=== PATIENT | male | born 1965 | race Two or more races ===

== ENCOUNTER → 2024-10-10 | Outpatient (CLI) | payer MEDICAID, SELFPAY ==
--- NOTE | 2024-10-10 15:12 | XR_ITS ---
Examination: Abdomen AP single view Technique: AP portable supine abdomen, single view Exam date and time: October 10, 2024 1417 hours INDICATIONS: Abdominal pain constipation diarrhea 3 months FINDINGS: Mild to moderate air and stool in the colon There are air distended small bowel loops in the left abdomen No free air IMPRESSION: Consider CT scan abdomen pelvis follow-up to exclude early small bowel obstruction
== END | disposition home or self-care (01) ==
LOC: CDIM 14:54
PROVIDERS: PCP Family Medicine; Referring Provider Family Medicine; Visit Provider Family Medicine
DX: R10.9 Unspecified abdominal pain (principal)
CPT/HCPCS: 74018

== ENCOUNTER → 2025-01-04 | Outpatient (CLI) | payer MEDICAID, SELFPAY ==
--- NOTE | 2025-01-04 16:30 | XR_ITS ---
Examination: CT abdomen and pelvis without contrast. Coronal 3-D reconstructions. Sagittal 2-D reconstructions. Date and time of exam:January 04, 2025 1653 hrs. Indications: Generalized abdominal pain constipation beginning 5 months ago CTDI: vol (mGy): 10.5 DLP: (mGycm): 681 Technique: Axial images of the abdomen have been obtained, 3 mm slice thickness Intravenous contrast material has not been administered. Low dose protocols were performed. One or more of the following dose reduction techniques were used; automated exposure control, adjustment of the mA and/or KV according to patient size, use of iterative reconstruction technique. Findings: Severe diffuse fatty infiltration throughout the liver 17 mm solid lesion inferior medial right lobe the liver No definite gallstones Spleen not enlarged No pancreatic or adrenal mass No renal or ureteral calculi, no hydronephrosis Abdominal aortic calcification no aneurysmal dilatation Normal appendix No bowel obstruction Colonic diverticulosis, no diverticulitis Transverse prostate dimension 4.8 cm Contracted urinary bladder Moderate osteopenia Impression: Severe diffuse fatty infiltration throughout the liver 17 mm solid lesion anterior medial right over the liver, recommend MRI abdomen liver follow-up pre and postcontrast to exclude hepatic neoplasm No renal or ureteral calculi, no hydronephrosis Normal appendix Colonic diverticulosis, no diverticulitis No bowel obstruction
== END | disposition home or self-care (01) ==
PROVIDERS: Referring Provider Family Medicine; Visit Provider Family Medicine
DX: K76.0 Fatty (change of) liver, not elsewhere classified (principal); K76.9 Liver disease, unspecified; K57.30 Diverticulosis of large intestine without perforation or abscess without bleeding
CPT/HCPCS: 74176

== ENCOUNTER 2025-02-07 04:03 | Emergency (ER) | payer MEDICAID, SELFPAY ==
[2025-02-07 04:04] VITALS: BMI 38.0
[2025-02-07 04:10] VITALS: BP 179/96; PULSE 77; RESP 18; TEMP 37; O2SAT 95
--- NOTE | 2025-02-07 04:28 | EDRME_ITS ---
Rapid Medical Screening Exam [facility] Arrival date/time: 02/07/25 04:03 59M with history of HTN presents to ED with 2 days of cough that lead to some ab cramping and non-bloody diarrhea. Patient has had 6 months of intermittent ab pain and is being followed-up outpatient. Patient most recently had CT done at the end of December and is awaiting upcoming MRI for possible liver mass. Chief Complaint: Abdominal Pain Vital signs: Vital Signs Temperature 98.6 F 02/07/25 04:10 Pulse Rate 77 02/07/25 04:10 Respiratory Rate 18 02/07/25 04:10 Blood Pressure 179/96 H 02/07/25 04:10 Pulse Oximetry (%) 95 02/07/25 04:10 Oxygen Delivery Method Room Air 02/07/25 04:10
--- NOTE | 2025-02-07 04:28 | XR_ITS ---
Examination: PA chest single view TECHNIQUE: Upright PA chest single view Exam date and time: February 07, 2025 at 0435 hours INDICATIONS: Coughing beginning` 4 days ago FINDINGS: Normal heart size. Lungs are clear. The osseous structures are intact IMPRESSION: No active disease
[2025-02-07 04:53] LABS: Basophils % (Auto) 1 % (0-2.5); Eosinophils % (Auto) 0 % (0-10); Hematocrit 49.5 % (41.0-53.0); Hemoglobin 17.3 g/dL (13.5-16.0); Immature Granulocytes % (Auto) 0 % (0-0); Immature Granulocytes Auto 0.02 Thou/mm3 (0.00-0.00); Lymphocytes # (Auto) 1.4 Thou/mm3 (1.0-4.8); Lymphocytes % (Auto) 18 % (10-50); Mean Corpuscular HGB Conc 34.9 g/dl (31.0-37.0); Mean Corpuscular Hemoglobin 31.2 pg (25.0-35.0); Mean Corpuscular Volume 89 fL (80-100); Monocytes # (Auto) 1.5 Thou/mm3 (0.0-0.8); Monocytes % (Auto) 20 % (0-12); Neutrophils # (Auto) 4.6 Thou/mm3 (1.8-7.7); Neutrophils % (Auto) 61 % (37-80); Nucleated Red Blood Cell % 0 /100 WBC (0); Platelet Count 204 Thou/mm3 (140-440); RDW Standard Deviation 47.4 fL (35.1-43.9); Red Blood Count 5.55 Miln/mm3 (4.50-5.90); White Blood Count 7.6 Thou/mm3 (3.8-10.6)
[2025-02-07 05:25] LABS: Alanine Aminotransferase 42 U/L (10-49); Albumin, Serum 4.5 gm/dL (3.5-5.0); Albumin/Globulin Ratio 1.3 (1.2-2.2); Alkaline Phosphatase 61 U/L (46-116); Anion Gap 9 (7-16); Aspartate Amino Transferase 50 U/L (0-34); BUN/Creatinine Ratio 12 Ratio (12-20); Bilirubin,Total 0.7 mg/dL (0.3-1.2); Blood Urea Nitrogen 14 mg/dL (9-23); Calcium 8.9 mg/dL (8.3-10.6); Calcium (Corrected) 8.9 mg/dL (8.5-10.1); Carbon Dioxide 27.4 mMol/L (20.0-31.0); Chloride 101 mMol/L (98-107); Creatinine (Component) 1.2 mg/dL (0.6-1.3); Globulin 3.4 gm/dL (2.3-3.5); Glucose 110 mg/dL (74-106); Lipase 41 U/L (12-53); Osmolality,Calculated 275 (275-295); Potassium 3.8 mMol/L (3.4-5.1); Sodium 137 mMol/L (136-145); Total Protein 7.9 gm/dL (5.7-8.2); eGFR > 60 See Note
[2025-02-07 05:37] LABS: Collection Type, Urine Clean Catch
[2025-02-07 05:41] LABS: Bilirubin,Urine Negative (Negative); Blood,Urine Negative (Negative); Clarity,Urine Clear (Clear/Hazy); Color,Urine Yellow (Lt Yel-Yel); Glucose, Urine Negative (Negative); Hyaline Casts,Urine < 1 /hpf (0-1); Ketones,Urine Negative (Negative); Leukocyte Esterase,Urine Negative (Negative); Nitrite,Urine Negative (Negative); Protein,Urine 1+ (Neg - Trace); RBC,Urine 2 /hpf (0-3); Specific Gravity,Urine 1.023 (1.001-1.035); Squamous Epithelial Cell,Urine < 1 /hpf (0-5); Urobilinogen,Urine Negative mg/dL (0.0-1.0); WBC,Urine 13 /hpf (0-5)
--- NOTE | 2025-02-07 06:20 | PD.EDABDPN ---
ED Abdominal Pain RME/HPI General Chief Complaint: Abdominal Pain Stated complaint: ABD PAIN DIARRHEA Time seen by provider: 02/07/25 06:15 Arrival date/time: 02/07/25 04:03 59M with history of HTN presents to ED with 2 days of cough that lead to some ab cramping and non-bloody diarrhea. Patient has had 6 months of intermittent ab pain and is being followed-up outpatient. Patient most recently had CT done at the end of December and is awaiting upcoming MRI for possible liver mass. Limitations: no limitations RME / HPI RME / HPI narrative: 02/07/25 04:03 59M with history of HTN presents to ED with 2 days of cough that lead to some ab cramping and non-bloody diarrhea. Patient has had 6 months of intermittent ab pain and is being followed-up outpatient. Patient most recently had CT done at the end of December and is awaiting upcoming MRI for possible liver mass. Related Data Home Medications ?Medication ?Instructions ?Recorded ?Confirmed amlodipine PO 05/28/19 12/02/19 benazepril PO 05/28/19 12/02/19 hydrochlorothiazide PO 05/28/19 12/02/19 Previous Rx's ?Medication ?Instructions ?Recorded loperamide 2 mg capsule (Imodium 2 mg PO Q6H PRN loose stool #14 02/07/25 A-D) caps ondansetron 4 mg disintegrating 4 mg PO Q8H PRN nausea and 02/07/25 tablet vomiting #10 tabs Allergies Allergy/AdvReac Type Severity Reaction Status Date / Time No Known Allergies Allergy Verified 12/02/19 11:54 Review of Systems Review of Systems Systems Reviewed: All systems reviewed, normal except as documented Constitutional Constitutional: Reports system reviewed and no additional complaints, except as documented, Reports body ache(s), Reports chills, Denies fever(s) and Denies headache(s) Eyes Eyes: Reports system reviewed and no additional complaints, except as documented and Denies blurry vision ENT Ears, Nose, Mouth, and Throat: Reports system reviewed and no additional complaints, except as documented, Denies headache(s), Reports nasal congestion and Reports nasal discharge Cardiovascular Cardiovascular: Reports system reviewed and no additional complaints, except as documented, Denies chest pain and Denies dyspnea Respiratory Respiratory: Reports system reviewed and no additional complaints, except as documented, Denies chest congestion, Denies cough and Denies dyspnea Gastrointestinal Gastrointestinal: Reports system reviewed and no additional complaints, except as documented, Denies abdominal pain, Reports cramping, Reports loose stools and Reports nausea Integumentary/Breasts Skin/Breast: Reports system reviewed and no additional complaints, except as documented and Denies rash Neurologic Neurologic: Reports system reviewed and no additional complaints, except as documented, Reports as per HPI and Denies headache(s) ED Exam General Limitations: Present no limitations General appearance: Present alert and in no apparent distress Head Head exam: Present atraumatic, normocephalic and normal inspection Eye Eye exam: Present normal appearance, PERRL and EOMI; Absent conjunctival injection ENT ENT exam: Present normal exam, normal oropharynx and mucous membranes moist Neck Neck exam: Present normal inspection, full ROM and trachea midline Chest Chest inspection: Present normal inspection and symmetric chest wall rise Respiratory Respiratory exam: Present normal lung sounds bilaterally; Absent respiratory distress Cardiovascular Cardiovascular exam: Present regular rate, normal rhythm and normal heart sounds Abdominal Exam Abdominal exam: Present soft and normal bowel sounds; Absent distention, tenderness, guarding, rebound, rigidity, Marie's sign or tenderness at McBurney's Point Abdominal tenderness: Absent RUQ or RLQ Extremities Exam Extremities exam: Present normal inspection and full ROM Back Exam Back exam: Present normal inspection and full ROM Neurological Exam Neurological exam: Present alert, oriented X3 and CN II-XII intact Psychiatric Psychiatric exam: Present normal affect and normal mood Skin Skin exam: Present warm, dry, intact and normal color Course Quality Measures none Orders Category Date Time Status Bedside COVID-19 Antigen Test NOW Care 02/07/25 04:28 Active Bedside Influenza A&B Antigen Test NOW Care 02/07/25 04:28 Active XR chest 1V portable Stat Exams 02/07/25 04:28 Taken CBC Stat Lab 02/07/25 04:40 Completed CMP [Comprehensive Metabolic Panel] Stat Lab 02/07/25 04:40 Completed Lipase Stat Lab 02/07/25 04:40 Completed UA [Urinalysis] Stat Lab 02/07/25 05:10 Completed Vital Signs Vital signs: Vital Signs Temperature 98.6 F 02/07/25 04:10 Pulse Rate 77 02/07/25 04:10 Respiratory Rate 18 02/07/25 04:10 Blood Pressure 179/96 H 02/07/25 04:10 Pulse Oximetry (%) 95 02/07/25 04:10 Oxygen Delivery Method Room Air 02/07/25 04:10 O2 saturation 95% on room air within normal limits Abdominal Pain MDM MDM Narrative MDM Narrative:: 59M with history of HTN presents to ED with 2 days of cough that lead to some ab cramping and non-bloody diarrhea. Patient has had 6 months of intermittent ab pain and is being followed-up outpatient. Patient most recently had CT done at the end of December and is awaiting upcoming MRI for possible liver mass. Lab work and chest x-ray ordered by my colleague I reviewed them unremarkable at this time Patient does have positive for influenza consistent with his symptoms of nausea and diarrhea Explained to the patient he needs to continue following up with his PCP for an outpatient MRI head for emergent concerns to return immediately Patient data External records reviewed:: [facility] previous records Clinical information provided by:: patient Social determinants that could affect healthcare access:: alcohol use Patient has the following chronic illnesses:: See history How is presenting disease/condition affected by chronic disease/condition?: uneffected by Evaluation data The following diagnostics were reviewed and interpreted by me:: lab results and radiology exam(s) Lab and/or radiology exams considered but not ordered:: Labs radiology obtain Interpretation Summary: Reviewed by me Medications / Prescriptions Medications or Prescriptions considered but not ordered:: Given Medication administrations:: Given Consultations Consultation(s) initiated? (list below): No Diagnosis Differential diagnosis abdominal pain: abdominal pain, acute appendicitis, pancreatitis and small bowel obstruction Most likely diagnosis given after review of the tests above:: Influenza, diarrhea Admission Indicated Admission indicated?: not indicated Admission Request Was there a request for admission?: No Disposition Plan Disposition Plan: Discharge Discharge Attestation Discharge Attestation: The patient and all family members were given an opportunity to ask questions and understood the discharge instructions. Discharge instructions specifically effects, indications for sooner follow up or return to the emergency department, and the expected course of current diagnosis. Patient condition: Stable Discharge Plan Plan Patient Disposition: HOME (Self Care) Disposition Comment: Stable Prescriptions/Referrals Prescriptions/Med Rec: New loperamide [Imodium A-D] 2 mg capsule 2 mg PO Q6H PRN (Reason: loose stool) Qty: 14 0RF ondansetron 4 mg tablet,disintegrating 4 mg PO Q8H PRN (Reason: nausea and vomiting) Qty: 10 0RF No Action benazepril PO hydrochlorothiazide PO amlodipine PO Referrals: José Miguel Nair MD [Primary Care Provider] - 02/08/25 Problem List Clinical Impression: Influenza Patient/Caregiver Discharge Instructions Education Materials: The Flu (Influenza) Additional Instructions: Please follow up with your primary care doctor in the next 24-48hrs for any worsening symptoms return here immediately Print Language: Korean Stand Alone Forms: [employer] Award Info., Work/School Release, Patient Portal Info Letter PA/AUT[employer]SMISSION SPECIALIST Supervising Physician PA/AUT[employer]SM[employer] SPECIALIST Supervising Physician: Dr. alcantar
== END 2025-02-07 06:25 | disposition home or self-care (01) ==
PROVIDERS: Physician Assistant; Emergency Provider Family Medicine; PCP Family Medicine
DX: J11.1 Influenza due to unidentified influenza virus with other respiratory manifestations (principal)
CPT/HCPCS: 36415; 71045; 80053; 81001; 83690; 85025; 99283

== ENCOUNTER → 2025-03-07 | Outpatient (CLI) | payer MEDICAID, SELFPAY ==
--- NOTE | 2025-03-07 15:30 | XR_ITS ---
Examination: MRI abdomen with intravenous contrast. MRI abdomen without intravenous contrast. Date and time of exam: March 07, 2025 1629 hours Indications: Intermittent abdominal pain beginning August 2024, 17 mm lesion right lobe of the liver on CT abdomen and pelvis January 04, 2025 Technique: Multiple axial, sagittal and coronal sections of the abdomen obtained. Transverse images, TR 6020, TE 107. T1 weighted transverse images, TR 582, TE 9.5. T2-weighted sagittal images, TR 4000, TE 105. T2-weighted sagittal images, TR 4000, TE 5. Coronal images, TR 4210, TE 107. Axial and coronal images are obtained post 20 cc intravenous injection, gadolinium. Findings: Precontrast images demonstrate multiple hyperintense lesions consistent with cysts including 16mm cyst in the lower right lobe of the liver Postcontrast images do not demonstrate enhancement of these liver lesions Spleen is not enlarged No gallstones Normal caliber about a common bile duct No pancreatic mass No ascites No hydronephrosis Aorta normal size IMPRESSION: Benign liver cysts, no solid liver lesions
== END | disposition home or self-care (01) ==
PROVIDERS: PCP Family Medicine; Referring Provider Family Medicine; Visit Provider Family Medicine
DX: K76.89 Other specified diseases of liver (principal)
CPT/HCPCS: 74183; A9579